=== PATIENT | female | born 1955 | race Caucasian/White ===

== ENCOUNTER 2016-05-10 12:18 | Emergency (ER) | payer OTHER ==
[~2016-05-10 12:18] MED LIST: BACTRIM DS1 TAB PO; BUPROPION HCL100 MG PO; CENTRUM SILVER ULTR1 PO; FLUOXETINE HCL20 MG PO; HYDROXYZINE HCL25 MG PO; IBUPROFEN600 MG PO; PERCOCET1 TA1 PO; VITAMIN D-31000 UNIT PO
--- NOTE | 2016-05-10 13:06 | DIAGNOSTIC IMAGING REPORT ---
PROCEDURE: XR CHEST 2 VIEW INDICATION: FEVER TECHNIQUE: PA and lateral views. COMPARISON: None. FINDINGS: Lungs are clear. Heart and mediastinum are normal. Thorax is normal. IMPRESSION: 1. Negative chest.
--- NOTE | 2016-05-10 13:15 | ED NURSING NOTES ---
Clinical Report - Nurses [facility] [place] [address] 05/10/2016 12:18 Patient: BEATRICE GUTIERREZ TRIAGE Triage time 1237 PM. Chief Complaint: FEVER, COUGH and BODY ACHES. --12:41 Jonathan Greenwood R.N. 12:37 05/10/16. BP: 151/68. HR: 77. RR: 16. O2 saturation: 100% on room air. Temp: 98.5 F (oral). Pain level now: 0. --12:41 Jonathan Greenwood R.N. Alert. No acute distress. --12:41 Jonathan Greenwood R.N. Weight: 59.4 kg stated. Height/Length: 66 inches Per Patient. BMI: 21.1. --12:40 Jonathan Greenwood R.N. Medications PROzac Oral. --12:40 Jonathan Greenwood R.N. Wellbutrin Oral. --12:40 Jonathan Greenwood R.N. Allergies Penicillin. --12:40 Jonathan Greenwood R.N. History Arrived by private vehicle. Historian: patient. Unaccompanied. Onset. (about 3 days ago). She has had contact with a sick individual. (granddaughter with whooping cough). ( Patient presents to the ED with symptoms of fever, chills, cough, and congestion. Patient states that she symptoms started on Monday with runny nose and sneezing. Patient states that her granddaughter was diagnosed with whooping cough and states that she is been "hanging out" with her granddaughter a lot lately.). She has had fatigue, sinus pain and a headache. SOCIAL HX: Light tobacco smoker (cigarette)- less than 1/2 a pack per day. Occasional alcohol use. History of drug use. (no). FALL RISK ASSESSMENT: Fall risk assessment completed. No fall risk identified. NUTRITIONAL RISK ASSESSMENT: The nutritional risk assessment revealed no deficiencies. FUNCTIONAL ASSESSMENT: Functional assessment: no impairments noted. LEARNING NEEDS ASSESSMENT: The learning needs assessment revealed no barriers. SKIN INTEGRITY ASSESSMENT: Skin integrity risk assessment completed. No skin integrity risk identified. --12:41 Jonathan Greenwood R.N. PROBLEMS: Depression. --12:40 Jonathan Greenwood R.N. ADDITIONAL SURGERIES: Elbow sugery. --12:40 Jonathan Greenwood R.N. PHYSICAL ASSESSMENT Ambulatory to room. GENERAL / NEURO / PSYCH: Alert. Oriented X 4. Appears in no acute distress. She has had weakness (headache). HEENT: Pupils equal, round and reactive to light. Mucous membranes are pink. RESPIRATORY: Mild respiratory distress. Cough productive of yellow sputum. CVS: Normal sinus rhythm noted. Capillary refill less than 2 seconds. Pulses within normal limits. GI / : Abdomen soft and nontender and normal bowel sounds. SKIN: Skin intact. Skin is warm and dry. Normal skin turgor. --12:42 Jonathan Greenwood R.N. NURSING PROGRESS NOTES Head of bed elevated. Call light placed in reach. Side rails up x 1. Bed placed in lowest position. Brakes of bed on. --12:42 Jonathan Greenwood R.N. 13:15 05/10/2016 Azithromycin PO Tablets 500 mg given. Allergies verified and confirmed 5 rights. --13:15 Jonathan Greenwood R.N. DISPOSITION / DISCHARGE Condition at departure: improved. The goals identified in the patient's plan of care were met. No learning barriers present. Discharge instructions provided and reviewed with the patient. Reviewed medication(s) side effects, precautions, dosing and course information. Treatments reviewed (handwashing). Patient verbalized understanding. Written instructions provided in [place]. The patient was discharged home and unaccompanied at time of discharge. She left the Emergency Department ambulatory and via private vehicle. Patient driving. FALL RISK ASSESSMENT: Fall risk assessment completed. No fall risk identified. --13:26 Jonathan Greenwood R.N. 13:25 05/10/16. BP: 135/62. HR: 78. RR: 16. O2 saturation: 100%. Temp: 98.2 F (oral). Pain level now: 010. --13:26 Joanthan Greenwood R.N. Departure time: 1326 PM. --13:26 Jonathan Greenwood R.N. Locked/Released at 05/10/2016 13:28 by Jonathan Greenwood R.N.
--- NOTE | 2016-05-10 13:15 | ED CLINICAL REPORT ---
Clinical Report - Physicians/Mid Levels [facility] [address] [place] [address] 05/10/2016 12:18 Patient: BEATRICE GUTIERREZ Time Seen: 12:55 pm. Arrived- By private vehicle. Historian- patient. HISTORY OF PRESENT ILLNESS Chief Complaint: COUGH. This started past 4 days and is still present. It was abrupt in onset and has been constant but is not gone now. The illness is described as moderate. The patient has had a cough, nasal congestion, fever, chills and muscle aches. She has had a nasal discharge. Additional history - The patient has had contact with a sick individual. (granddaughter with diagnosis of pertusis). No recent travel. (reports vaccinations are up to date). Similar symptoms previously: None. Recent medical care: Not recently seen/assessed. REVIEW OF SYSTEMS All systems otherwise negative, except as recorded above. PAST HISTORY See nurses notes. Medications: Wellbutrin Oral. PROzac Oral. Allergies: Penicillin. SOCIAL HISTORY Smoker- current status unknown. No alcohol use or drug use. No recent travel. Is a local resident. ADDITIONAL NOTES The nursing notes have been reviewed. PHYSICAL EXAM Vital Signs: 05/10/2016 12:37 BP: 151/68. HR: 77. RR: 16. O2 saturation: 100%. Temp: 98.5 F. Pain level now: 0/10. Blood pressure normal. Oxygen saturation normal. Appearance: Alert. No acute distress. Eyes: Pupils equal, round and reactive to light. Eyes normal inspection. ENT: Ears normal. Nose normal. Pharynx normal. Uvula midline. Neck: Normal inspection. Neck supple. CVS: Normal heart rate and rhythm. Heart sounds normal. Pulses normal. Respiratory: No respiratory distress. Breath sounds normal. No rales, rhonchi, wheezes or stridor. (occasional cough). Abdomen: Soft and nontender. No organomegaly. Skin: Skin warm and dry. Normal skin color. No rash. Normal skin turgor. LABS, X-RAYS, AND EKG Chest X-ray: (PROCEDURE: XR CHEST 2 VIEW INDICATION: FEVER TECHNIQUE: PA and lateral views. COMPARISON: None. FINDINGS: Lungs are clear. Heart and mediastinum are normal. Thorax is normal. IMPRESSION: 1. Negative chest.). Views: PA and lateral. Technique: good. The X-rays were independently viewed by me, interpreted by the radiologist and discussed with the radiologist. PROGRESS AND PROCEDURES Course of Care: the patient is a pleasant 60-year-old female presenting for evaluation of upper respiratory tract symptoms. At this time differential diagnosis includes pertussis given the recent exposure as well as viral upper respiratory tract infection including Pneumonia. Chest x-ray was ordered from triage. Patient does not have any signs of acute consolidations or pneumothorax on examination. Patient is resting in bed in no acute distress. Patient appears nontoxic. Had discussion in regards to pertussis for the patient. PCR swab obtained for pertussis screening. I discussion with the patient in regards to treatment of pertussis. We'll provide antibiotics for covering of patient as she does have interactions with a 90-year-old Family member. Patient is in no acute respiratory distress. Do not feel further emergency department evaluation or workup is warranted at this time. I discussion with the patient in regards to workup, diagnosis, home care, follow-up, and return precautions. All questions answered. The patient expressed understanding of these instructions and was agreeable to them. Disposition: Discharged. Condition: good. CLINICAL IMPRESSION 05/10/2016 12:37 BP: 151/68. HR: 77. RR: 16. O2 saturation: 100%. Temp: 98.5 F. Pain level now: 0/10. Hypertensive. Oxygen saturation normal. Acute viral syndrome Essential hypertension. Pertussis due to Bordetella pertussis (Acute exposure). No pneumonia. INSTRUCTIONS Off work for 2 days. Warnings: GENERAL WARNINGS: Return or contact your physician immediately if your condition worsens or changes unexpectedly, if not improving as expected, or if other problems arise. Specifically return if pain, vomiting, bleeding, breathing difficulty or fever. Your Current Medications: CONTINUE TAKING THE FOLLOWING MEDICATIONS: PROzac Oral. Wellbutrin Oral. Prescription Medications: Zithromax Z-Prasanth: Take according to package instructions. No refills. Substitution is permissible. Follow-up: Return to the emergency department as needed. Follow up with your doctor in three days. Reason for referral: recheck today's concerns. Summary of care provided to patient via paper. Screening today revealed the patient's blood pressure to be in the hypertensive range. The patient should follow up with a primary care provider for blood pressure management. Understanding of the discharge instructions verbalized by patient. (Electronically signed by Adrian Fletcher Dr. 05/12/2016 2:41)
--- NOTE | 2016-05-10 13:15 | ED ORDER SUMMARY ---
..... Patient: BEATRICE GUTIERREZ OrderSheet [facility] VisitID: [id number] [address] [place] [address] 60y, F Registration Date/Time: 05/10/2016 ORDER SHEET Weight: 59.4 kg (stated) Allergies: Penicillin GENERAL ORDERS: Chest 2V Urgent (12:35 05/10/2016 Sindy Barros) (Ack 12:36 NHouse ER Tech1) (12:56 GMarshall R.N.) Pertussis PCR (Nasopharyngeal) (mucus) Stat (13:05 05/10/2016 Sindy Barros) (Ack 13:12 NHouse ER Tech1) (13:15 HOShaughnessy R.N.) MEDICATION ORDERS: Azithromycin PO 500 mg (NOW) (13:06 05/10/2016 Sindy Barros) (13:15 HOShaughnessy R.N.) IV FLUIDS: ORDER SHEET NOTES: [Electronically signed by Jonathan Greenwood R.N. (13:28 05/10/2016)] [Electronically signed by Adrian Fletcher Dr. (02:41 05/12/2016)] [Electronically locked/signed by Jonathan Greenwood R.N. (13:28 05/10/2016)]
--- NOTE | 2016-05-10 13:15 | ED ORDER SUMMARY ---
..... Patient: BEATRICE GUTIERREZ OrderSheet [facility] VisitID: [id number] [address] [place] [address] 60y, F Registration Date/Time: 05/10/2016 ORDER SHEET Weight: 59.4 kg (stated) Allergies: Penicillin GENERAL ORDERS: Chest 2V Urgent (12:35 05/10/2016 Sindy Barros) (Ack 12:36 NHouse ER Tech1) (12:56 GMarshall R.N.) Pertussis PCR (Nasopharyngeal) (mucus) Stat (13:05 05/10/2016 Sindy Barros) (Ack 13:12 NHouse ER Tech1) (13:15 HOShaughnessy R.N.) MEDICATION ORDERS: Azithromycin PO 500 mg (NOW) (13:06 05/10/2016 Sindy Barros) (13:15 HOShaughnessy R.N.) IV FLUIDS: ORDER SHEET NOTES: [Electronically signed by Jonathan Greenwood R.N. (13:28 05/10/2016)] [Electronically signed by Adrian Fletcher Dr. (02:41 05/12/2016)] [Electronically locked/signed by Jonathan Greenwood R.N. (13:28 05/10/2016)]
--- NOTE | 2016-05-10 13:15 | ED NURSING NOTES ---
Clinical Report - Nurses [facility] [place] [address] [place] [address] 05/10/2016 12:18 Patient: BEATRICE GUTIERREZ TRIAGE Triage time 1237 PM. Chief Complaint: FEVER, COUGH and BODY ACHES. --12:41 Jonathan Greenwood R.N. 12:37 05/10/16. BP: 151/68. HR: 77. RR: 16. O2 saturation: 100% on room air. Temp: 98.5 F (oral). Pain level now: 0. --12:41 Jonathan Greenwood R.N. Alert. No acute distress. --12:41 Jonathan Greenwood R.N. Weight: 59.4 kg stated. Height/Length: 66 inches Per Patient. BMI: 21.1. --12:40 Jonathan Greenwood R.N. Medications PROzac Oral. --12:40 Jonathan Greenwood R.N. Wellbutrin Oral. --12:40 Jonathan Greenwood R.N. Allergies Penicillin. --12:40 Jonathan Greenwood R.N. History Arrived by private vehicle. Historian: patient. Unaccompanied. Onset. (about 3 days ago). She has had contact with a sick individual. (granddaughter with whooping cough). ( Patient presents to the ED with symptoms of fever, chills, cough, and congestion. Patient states that she symptoms started on Monday with runny nose and sneezing. Patient states that her granddaughter was diagnosed with whooping cough and states that she is been "hanging out" with her granddaughter a lot lately.). She has had fatigue, sinus pain and a headache. SOCIAL HX: Light tobacco smoker (cigarette)- less than 1/2 a pack per day. Occasional alcohol use. History of drug use. (no). FALL RISK ASSESSMENT: Fall risk assessment completed. No fall risk identified. NUTRITIONAL RISK ASSESSMENT: The nutritional risk assessment revealed no deficiencies. FUNCTIONAL ASSESSMENT: Functional assessment: no impairments noted. LEARNING NEEDS ASSESSMENT: The learning needs assessment revealed no barriers. SKIN INTEGRITY ASSESSMENT: Skin integrity risk assessment completed. No skin integrity risk identified. --12:41 Jonathan Greenwood R.N. PROBLEMS: Depression. --12:40 Jonathan Greenwood R.N. ADDITIONAL SURGERIES: Elbow sugery. --12:40 Jonathan Greenwood R.N. PHYSICAL ASSESSMENT Ambulatory to room. GENERAL / NEURO / PSYCH: Alert. Oriented X 4. Appears in no acute distress. She has had weakness (headache). HEENT: Pupils equal, round and reactive to light. Mucous membranes are pink. RESPIRATORY: Mild respiratory distress. Cough productive of yellow sputum. CVS: Normal sinus rhythm noted. Capillary refill less than 2 seconds. Pulses within normal limits. GI / : Abdomen soft and nontender and normal bowel sounds. SKIN: Skin intact. Skin is warm and dry. Normal skin turgor. --12:42 Jonathan Greenwood R.N. NURSING PROGRESS NOTES Head of bed elevated. Call light placed in reach. Side rails up x 1. Bed placed in lowest position. Brakes of bed on. --12:42 Jonathan Greenwood R.N. 13:15 05/10/2016 Azithromycin PO Tablets 500 mg given. Allergies verified and confirmed 5 rights. --13:15 Jonathan Greenwood R.N. DISPOSITION / DISCHARGE Condition at departure: improved. The goals identified in the patient's plan of care were met. No learning barriers present. Discharge instructions provided and reviewed with the patient. Reviewed medication(s) side effects, precautions, dosing and course information. Treatments reviewed (handwashing). Patient verbalized understanding. Written instructions provided in [place]. The patient was discharged home and unaccompanied at time of discharge. She left the Emergency Department ambulatory and via private vehicle. Patient driving. FALL RISK ASSESSMENT: Fall risk assessment completed. No fall risk identified. --13:26 Jonathan Greenwood R.N. 13:25 05/10/16. BP: 135/62. HR: 78. RR: 16. O2 saturation: 100%. Temp: 98.2 F (oral). Pain level now: 010. --13:26 Jonathan Greenwood R.N. Departure time: 1326 PM. --13:26 Jonathan Greenwood R.N. Locked/Released at 05/10/2016 13:28 by Jonathan Greenwood R.N.
--- NOTE | 2016-05-12 02:41 | ED MED RECONCILIATION SUMMARY ---
Patient: BEATRICE GUTIERREZ Medication Reconciliation Report [facility] VisitID: [id number] [address] [place] [address] 60y, F Registration Date/Time: 05/10/2016 Weight: 59.4 kg Height/Length: 66 in. BMI: 21.1 ALLERGIES: Penicillin The patient's Home Medications are listed below: CONTINUE TAKING THE FOLLOWING MEDICATIONS: PROzac Oral Wellbutrin Oral The source(s) of the original Home Medication information: Not obtained. The following Medications were given to the patient in the Emergency Department: Azithromycin [PO] PO 500 mg, administered: 05/10/2016 1:15:00 PM The following Medications were prescribed to the patient: Zithromax Z-Prasanth: Take according to package instructions. No refills. Substitution is permissible. -- Adrian Fletcher Dr.
--- NOTE | 2016-05-12 02:41 | ED DISCHARGE INSTRUCTIONS ---
Patient: BEATRICE GUTIERREZ General Instructions [facility] VisitID: [id number] [place] [address] 60y, F Registration Date/Time: 05/10/2016 05/10/2016 12:37 BP: 151/68. HR: 77. RR: 16. O2 saturation: 100%. Temp: 98.5 F. Pain level now: 0/10. Hypertensive. Oxygen saturation normal. Acute viral syndrome Essential hypertension. Pertussis due to Bordetella pertussis (Acute exposure). No pneumonia. INSTRUCTIONS Off work for 2 days. Warnings: GENERAL WARNINGS: Return or contact your physician immediately if your condition worsens or changes unexpectedly, if not improving as expected, or if other problems arise. Specifically return if pain, vomiting, bleeding, breathing difficulty or fever. Your Current Medications: CONTINUE TAKING THE FOLLOWING MEDICATIONS: PROzac Oral. Wellbutrin Oral. Prescription Medications: Zithromax Z-Prasanth: Take according to package instructions. No refills. Substitution is permissible. Follow-up: Return to the emergency department as needed. Follow up with your doctor in three days. Reason for referral: recheck today's concerns. Summary of care provided to patient via paper. Screening today revealed the patient's blood pressure to be in the hypertensive range. The patient should follow up with a primary care provider for blood pressure management. Understanding of the discharge instructions verbalized by patient. ADDITIONAL INFORMATION Viral Syndrome (Adult) A viral illness may cause a number of symptoms. The symptoms depend on the part of the body that the virus affects. If it settles in the nose, throat, and lungs, it may cause cough, sore throat, congestion, and sometimes headache. If it settles in the stomach and intestinal tract, it may cause vomiting and diarrhea. Sometimes it causes vague symptoms like "aching all over," feeling tired, loss of appetite, or fever. A viral illness usually lasts1 to 2 weeks, but sometimes it lasts longer. In some cases, a more serious infection can look like a viral syndrome in the first few days of the illness. You may need anotherexam and additional teststo know the difference.Watch for the warning signs listed below. Home care Follow these guidelines for taking care of yourself at home: If symptoms are severe, rest at home for the first 2 to 3 days. Stay away from cigarette smoke - both your smoke and the smoke from others. You may useacetaminophen or ibuprofen for fever, muscle aching, and headache, unless another medicine was prescribed for this.If you have chronic liver or kidney disease or ever had a stomach ulcer or GI bleeding, talk with your doctor before using these medicinesNo one who is younger than 18 and ill with a fever should take aspirin. It may cause severe liver damage. Your appetite may be poor, so a light diet is fine. Avoid dehydration by drinking 8 to 12 8-ounce glasses of fluids each day. This may include water; orange juice; lemonade; apple, grape, and cranberry juice; clear fruit drinks; electrolyte replacement and sports drinks; and decaffeinated teas and coffee. If you have been diagnosed with a kidney disease, ask your doctor how much and what types of fluids you should drink to prevent dehydration. If you have kidney disease, drinking too much fluid can cause it build up in the your body and be dangerous to your health. Bfnv-dwi-vexumuh remedies won't shorten the length of the illness but may be helpful forcough, sore throat; and nasal and sinus congestion. Don't use decongestants if you have high blood pressure. Follow-up care Follow up with your health care provider if you do not improve over the next week. When to seek medical care Get prompt medical attention if any of these occur: Cough with lots of colored sputum (mucus) or blood in your sputum Chest pain, shortness of breath, wheezing, or difficulty breathing Severe headache; face, neck, or ear pain Severe, constant pain in the lower right side of your belly (abdominal) Continued vomiting (cant keep liquids down) Frequent diarrhea (more than 5 times a day); blood (red or black color) or mucus in diarrhea Feeling weak, dizzy, or like you are going to faint Extreme thirst Fever of 100.4 F (38 C) oral or higher, not better with fever medication Convulsion High Blood Pressure -- To Be Confirmed [No Tx] Your blood pressure was higher today than normal. Sometimes anxiety or pain can cause a temporary rise in blood pressure that later returns to normal. If your blood pressure is high on one measurement, this does not mean that you have hypertension (a chronic illness). However, you must have your blood pressure measured again within the next few days to find out if its still high. A normal blood pressure is 120/80 or less. The first (top) number is the "systolic" pressure. The second (bottom) number is the "diastolic" pressure. Hypertension exists when either the top number is 140 or higher, OR the bottom number is 90 or higher on repeated measurements. Blood pressure in the range of 120-140 (systolic) or 80-89 (diastolic) is considered "pre-hypertension". This means your are at risk for getting hypertension. You should have regular blood pressure checks to be sure your blood pressure is not rising. Home Care: Measure your blood pressure on 3 different days and write down the results. This can be done at your doctor's office or this facility. Some pharmacies and grocery stores offer automated blood pressure machines for your use. Follow Up: If your blood pressure is "high" (over 120/80) on 2 out of 3 days, you will need to follow up with your doctor for further evaluation and treatment. DO NOT PUT THIS OFF! Untreated high blood pressure increases the risk for heart attack, also known as acute myocardial infarction, or AMI, and stroke. It is a treatable condition. Get Prompt Medical Attention if any of the following occur: Chest pain or shortness of breath Severe headache Throbbing or rushing sound in the ears Nosebleed Sudden severe abdominal pain Extreme drowsiness, confusion or fainting Dizziness or vertigo (dizziness with spinning sensation) Weakness of an arm or leg or one side of the face Difficulty with speech or vision Whooping Cough (Pertussis) (6 Yr-Adult) Whooping cough (also called pertussis) is a bacterial infection in the respiratory tract. It is very serious and can lead to severe illness including when it occurs in infants under one year of age or the elderly; however, in children and adults it usually causes only a mild illness. Pertussis is highly contagious and is spread through the air by coughing or sneezing. Bordetella pertussus, the pertussis bacteria, is then breathed in by others who are in close contact with the infected person. The illness starts like an ordinary cold with mild cough, congestion and low grade fever. However, the coughing becomes very severe after the first two weeks of illness and may lead to exhaustion and poor appetite in younger children. There may be very thick mucus in the nose and throat that makes breathing difficult. Coughing spells may be prolonged and followed by a loud "whooping" sound when breathing in. Fatigue (feeling tired),gagging, and vomiting may also occur after a coughing spell. Rarely, in the most severe cases, the air passage can become blocked making it impossible to breathe. Antibiotics are used to treat this illness but after treatment it may take up to three months for the cough to disappear completely. Vaccination of children prevents pertussis, however the vaccine wears off after 5-10 years. This is why teens and adults who were vaccinated as a child can get a mild form of pertussis. These teens and adults can spread the illness to unvaccinated infants and children. Be sure to ask your healthcare provider whether you or your teen needs a booster vaccination. Home Care: Stay home from work or school until you have completed at least five days of antibiotic treatment or until three weeks or 21 days after the onset of cough, if appropriate antibiotic treatment is not taken. If symptoms are severe, rest at home for the first 2-3 days. When resuming activity, do not let yourself become overly tired. Avoid exposure to cigarette smoke (yours or others). Before taking medication for fever, pain, and coughing, please consult with your doctor. Your appetite may be poor so a light diet is fine. Avoid dehydration by drinking 6-8 glasses of fluids (water, sport drinks, juices, tea, soup, etc.). Extra fluids will help loosen secretions in the nose and lungs. Follow Up with your doctor or as advised if you are not improving over the next week. [NOTE: A radiologist will review any X-rays that were taken. We will notify you of any new findings that may affect your care.] Get Prompt Medical Attention if any of the following occur: Shortness of breath, noisy breathing, difficulty or pain with breathing Fast breathing (6-10 yrs: over 30 breaths/min, more than 10 yrs old: over 25 breaths/min) Cough becomes more severe, with gagging, vomiting or turning blue during the cough Cough with lots of colored sputum (mucus) or blood in your sputum Severe headache; face, neck, or ear pain Fever over 100.4F (38.0C) for more than three days Azithromycin Oral tablet What is this medicine? AZITHROMYCIN (az edelmira ramirez) is a macrolide antibiotic. It is used to treat or prevent certain kinds of bacterial infections. It will not work for colds, flu, or other viral infections. How should I use this medicine? Take this medicine by mouth with a full glass of water. Follow the directions on the prescription label. The tablets can be taken with food or on an empty stomach. If the medicine upsets your stomach, take it with food. Take your medicine at regular intervals. Do not take your medicine more often than directed. Take all of your medicine as directed even if you think your are better. Do not skip doses or stop your medicine early. Talk to your library assistant regarding the use of this medicine in children. Special care may be needed. What side effects may I notice from receiving this medicine? Side effects that you should report to your doctor or health respiratory care technician as soon as possible: allergic reactions like skin rash, itching or hives, swelling of the face, lips, or tongue confusion, nightmares or hallucinations dark urine difficulty breathing hearing loss irregular heartbeat or chest pain pain or difficulty passing urine redness, blistering, peeling or loosening of the skin, including inside the mouth white patches or sores in the mouth yellowing of the eyes or skin Side effects that usually do not require medical attention (report to your doctor or health respiratory care technician if they continue or are bothersome): diarrhea dizziness, drowsiness headache stomach upset or vomiting tooth discoloration vaginal irritation What may interact with this medicine? Do not take this medicine with any of the following medications: lincomycin This medicine may also interact with the following medications: amiodarone antacids cyclosporine digoxin magnesium nelfinavir phenytoin warfarin What if I miss a dose? If you miss a dose, take it as soon as you can. If it is almost time for your next dose, take only that dose. Do not take double or extra doses. Where should I keep my medicine? Keep out of the reach of children. Store at room temperature between 15 and 30 degrees C (59 and 86 degrees F). Throw away any unused medicine after the expiration date. What should I tell my health care provider before I take this medicine? They need to know if you have any of these conditions: kidney disease liver disease irregular heartbeat or heart disease an unusual or allergic reaction to azithromycin, erythromycin, other macrolide antibiotics, foods, dyes, or preservatives or trying to get breast-feeding What should I watch for while using this medicine? Tell your doctor or health respiratory care technician if your symptoms do not improve. Do not treat diarrhea with over the counter products. Contact your doctor if you have diarrhea that lasts more than 2 days or if it is severe and watery. This medicine can make you more sensitive to the sun. Keep out of the sun. If you cannot avoid being in the sun, wear protective clothing and use sunscreen. Do not use sun lamps or tanning beds/booths. You have been given the following additional information: Viral Syndrome (Adult) Hypertension, To Be Confirmed Pertussis (6 Yr-Adult) Azithromycin Oral tablet Off work for 2 days. (Electronically signed by Adrian Fletcher Dr. 05/12/2016 2:41)
--- NOTE | 2016-05-12 02:41 | ED MAR SUMMARY ---
..... Medication Administration Record [facility] [address] [place] [address] Patient: BEATRICE GUTIERREZ Visit ID: [id number] 60y, F Weight: 59.4 kg Height/Length: 66 in BMI: 21.1 ALLERGIES: Penicillin Given 13:15 05/10/2016 Jonathan Greenwood R.N. Medication Administered: AZITHROMYCIN [PO], Dose: 500 mg Tablets PO. Medication Ordered: Azithromycin PO 500 mg (NOW).
--- NOTE | 2016-05-12 02:41 | ED MED RECONCILIATION SUMMARY ---
Patient: BEATRICE GUTIERREZ Medication Reconciliation Report [facility] VisitID: [id number] [address] [place] [address] 60y, F Registration Date/Time: 05/10/2016 Weight: 59.4 kg Height/Length: 66 in. BMI: 21.1 ALLERGIES: Penicillin The patient's Home Medications are listed below: CONTINUE TAKING THE FOLLOWING MEDICATIONS: PROzac Oral Wellbutrin Oral The source(s) of the original Home Medication information: Not obtained. The following Medications were given to the patient in the Emergency Department: Azithromycin [PO] PO 500 mg, administered: 05/10/2016 1:15:00 PM The following Medications were prescribed to the patient: Zithromax Z-Prasanth: Take according to package instructions. No refills. Substitution is permissible. -- Adrian Fletcher Dr.
--- NOTE | 2016-05-12 02:41 | ED MAR SUMMARY ---
..... Medication Administration Record [facility] [address] [place] [address] Patient: BEATRICE GUTIERREZ Visit ID: [id number] 60y, F Weight: 59.4 kg Height/Length: 66 in BMI: 21.1 ALLERGIES: Penicillin Given 13:15 05/10/2016 Jonathan Greenwood R.N. Medication Administered: AZITHROMYCIN [PO], Dose: 500 mg Tablets PO. Medication Ordered: Azithromycin PO 500 mg (NOW).
== END 2016-05-10 13:27 | disposition home or self-care (01) ==
LOC: ED SRH 12:18
DX: A37.00 Whooping cough due to Bordetella pertussis without pneumonia (principal); B34.9 Viral infection, unspecified; I10 Essential (primary) hypertension; Z79.899 Other long term (current) drug therapy; Z88.0 Allergy status to penicillin
CPT/HCPCS: 92025

== ENCOUNTER 2016-09-30 11:19 | Observation (INO) | payer OTHER ==
[~2016-09-30] VITALS: Ht 167.6 cm; Wt 57.7 kg
--- NOTE | 2016-09-30 12:26 | DIAGNOSTIC IMAGING REPORT ---
PROCEDURE: XR CHEST 2 VIEW INDICATION: FEVER, PLEURITIC RIGHT CP TECHNIQUE: Two views. COMPARISON: 05/10/2016 FINDINGS: The cardiomediastinal contour is stable, within normal limits. The central vasculature is not congested. There is a lace-like alveolar opacity laterally in the right upper lobe and thickening of the right minor fissure. A tiny right pleural effusion is present. The right lower lung and left lungs are otherwise normally aerated. Osseous structures are intact. IMPRESSION: 1. Findings consistent with infectious/inflammatory pneumonia right lateral upper lobe with very small right pleural effusion.
--- NOTE | 2016-09-30 13:28 | ED ORDER SUMMARY ---
..... Patient: BEATRICE GUTIERREZ OrderSheet [facility] VisitID: [id number] [address] [place] [address] 61y, F Registration Date/Time: 09/30/2016 ORDER SHEET Weight: 56.6 kg (stated) Allergies: Penicillin GENERAL ORDERS: Chest 2V Urgent (11:50 09/30/2016 Sindy Barros) (Ack 11:55 Suzanne) (12:41 Torsten R.N.) CBC w Diff Urgent (11:51 09/30/2016 Sindy Barros) (Ack 11:55 Suzanne) (13:10 LWhalen R.N.) CMP Urgent (11:09/30/2016 Sindy Barros) (Ack 11:55 Suzanne) (13:10 LWhalen R.N.) UA-Culture if indicated Urgent (11:09/30/2016 Sindy Barros) (Ack 11:55 Suzanne) (12:02 LWhalen R.N.) Pulse oximeter (11:09/30/2016 Sindy Barros) (12:40 Torsten R.N.) EKG - ER Stat (:09/30/2016 Sindy Barros) (12:01 OHernandez) Lactate, Serum Urgent (13:32 09/30/2016 Sindy Barros) (Ack 13:34 Suzanne) (15:45 LWhalen R.N.) PCT (Procalcitonin) Urgent (13:32 09/30/2016 Sindy Barros) (Ack 13:34 Suzanne) (15:45 LWhalen R.N.) Blood Culture (Yes) (levaquin) Urgent (13:33 09/30/2016 Sindy Barros) (Ack 13:37 Suzanne) (15:45 LWhalen R.N.) MEDICATION ORDERS: IV FLUIDS: IV NS : initial bolus 1000 mL (1000 mL/hr), then none - for X1 (NOW) (11:09/30/2016 Sindy Barros) (12:42 Torsten R.N.) Toradol IV 30 mg (NOW) (11:51 09/30/2016 Sindy Barros) (12:42 Torsten SaucedaNJames) Azithromycin IV 500 mg/250 mL (NOW) (13:04 09/30/2016 Sindy Barros) (Cancelled: Duplicate Order13:18 Sindy Barros) Ceftriaxone IV 2 gm/50mL (NOW) (13:05 09/30/2016 Sindy Barros) (Cancelled: Duplicate Order13:18 Sindy Barros) Levaquin IV 750 mg/150 mL (NOW) (13:07 09/30/2016 Sindy Barros) (13:31 Liban R.NJames) ORDER SHEET NOTES: [Electronically signed by Ha Chandler R.N. (15:48 09/30/2016)] [Electronically signed by Adrian Fletcher Dr. (11:43 10/01/2016)] [Electronically locked/signed by Ha Chandler R.N. (15:48 09/30/2016)]
--- NOTE | 2016-09-30 13:28 | ED ORDER SUMMARY ---
..... Patient: BEATRICE GUTIERREZ OrderSheet [facility] VisitID: [id number] [address] [place] [address] 61y, F Registration Date/Time: 09/30/2016 ORDER SHEET Weight: 56.6 kg (stated) Allergies: Penicillin GENERAL ORDERS: Chest 2V Urgent (11:50 09/30/2016 Sindy Barros) (Ack 11:55 Suzanne) (12:41 Torsten R.N.) CBC w Diff Urgent (11:51 09/30/2016 Sindy Barros) (Ack 11:55 Suzanne) (13:10 LWhalen R.N.) CMP Urgent (11:09/30/2016 Sindy Barros) (Ack 11:55 Suzanne) (13:10 LWhalen R.N.) UA-Culture if indicated Urgent (11:09/30/2016 Sindy Barros) (Ack 11:55 Suzanne) (12:02 LWhalen R.N.) Pulse oximeter (11:09/30/2016 Sindy Barros) (12:40 Torsten R.N.) EKG - ER Stat (:09/30/2016 Sindy Barros) (12:01 OHernandez) Lactate, Serum Urgent (13:32 09/30/2016 Sindy Barros) (Ack 13:34 Suzanne) (15:45 LWhalen R.N.) PCT (Procalcitonin) Urgent (13:32 09/30/2016 Sindy Barros) (Ack 13:34 Suzanne) (15:45 LWhalen R.N.) Blood Culture (Yes) (levaquin) Urgent (13:33 09/30/2016 Sindy Barros) (Ack 13:37 Suzanne) (15:45 LWhalen R.N.) MEDICATION ORDERS: IV FLUIDS: IV NS : initial bolus 1000 mL (1000 mL/hr), then none - for X1 (NOW) (11:09/30/2016 Sindy Barros) (12:42 Torsten R.N.) Toradol IV 30 mg (NOW) (11:51 09/30/2016 Sindy Barros) (12:42 Torsten SaucedaNJames) Azithromycin IV 500 mg/250 mL (NOW) (13:04 09/30/2016 Sindy Barros) (Cancelled: Duplicate Order13:18 Sindy Barros) Ceftriaxone IV 2 gm/50mL (NOW) (13:05 09/30/2016 Sindy Barros) (Cancelled: Duplicate Order13:18 Sindy Barros) Levaquin IV 750 mg/150 mL (NOW) (13:07 09/30/2016 Sindy Barros) (13:31 Liban R.NJames) ORDER SHEET NOTES: [Electronically signed by Ha Chandler R.N. (15:48 09/30/2016)] [Electronically signed by Adrian Fletcher Dr. (11:43 10/01/2016)] [Electronically locked/signed by Ha Chandler R.N. (15:48 09/30/2016)]
--- NOTE | 2016-09-30 13:28 | ED CLINICAL REPORT ---
Clinical Report - Physicians/Mid Levels [facility] [address] [place] [address] 09/30/2016 11:21 Patient: BEATRICE GUTIERREZ Time Seen: 1145. Arrived- By private vehicle. Historian- patient. HISTORY OF PRESENT ILLNESS Chief Complaint: CHEST PAIN. This started past week and is still present (unchaged). It was abrupt in onset and has been constant but is not gone now. Onset during rest. At its maximum, severity described as moderate. When seen in the E.D., severity described as moderate. Modifying factors- worsened by movement, cough and deep breaths. Relieved by rest. It is described as sharp and it is described as located in the right chest area. No radiation. No nausea, vomiting, difficulty breathing or diaphoresis. (+body aches and muscle cramps). No additional chest pain. (no hx of trauma, leg swelling, recent surgery, hx of DVT/PE, hemoptysis). Similar symptoms previously: None. Recent medical care: Not recently seen/assessed. REVIEW OF SYSTEMS The patient has had fever. She has had a mild nonproductive cough. No skin rash. All systems otherwise negative, except as recorded above. PAST HISTORY See nurses notes. Medications: Gabapentin Oral. PROzac Oral. Wellbutrin Oral. Allergies: Penicillin. SOCIAL HISTORY Never smoker. No alcohol use or drug use. Recent travel. Is a local resident. FAMILY HISTORY Negative. ADDITIONAL NOTES The nursing notes have been reviewed. PHYSICAL EXAM Vital Signs: 09/30/2016 11:43 BP: 124/56. HR: 105. RR: 20. O2 saturation: 91%. Temp: 99.9 F. Blood pressure normal. Oxygen saturation normal. Appearance: Alert. Oriented X3. No acute distress. Eyes: Pupils equal, round and reactive to light. Eyes normal inspection. ENT: Ears normal. Nose normal. Pharynx normal. Neck: Normal inspection. Neck supple. CVS: Normal heart rate and rhythm. Heart sounds normal. Pulses normal. Respiratory: No respiratory distress. Breath sounds normal. Chest nontender. No decreased air movement, rales, rhonchi or wheezes. Abdomen: Soft and nontender. Bowel sounds normal. Skin: Skin warm and dry. Normal skin color. No rash. Normal skin turgor. Extremities: Extremities exhibit normal ROM. No lower extremity edema. Neuro: Oriented X 3. No motor deficit. No sensory deficit. LABS, X-RAYS, AND EKG Chest X-ray: (PROCEDURE: XR CHEST 2 VIEW INDICATION: FEVER, PLEURITIC RIGHT CP TECHNIQUE: Two views. COMPARISON: 05/10/2016 FINDINGS: The cardiomediastinal contour is stable, within normal limits. The central vasculature is not congested. There is a lace-like alveolar opacity laterally in the right upper lobe and thickening of the right minor fissure. A tiny right pleural effusion is present. The right lower lung and left lungs are otherwise normally aerated. Osseous structures are intact. IMPRESSION: 1. Findings consistent with infectious/inflammatory pneumonia right lateral upper lobe with very small right pleural effusion.). Laboratory Tests: CBC w Manual Diff: (ESTELLE: 10/01/2016 04:13) ( MsgRcvd 10/01/2016 09:27) Final results Test Result Flag Units (Reference) WHITE BLOOD COUNT NO REFLEX 6.1 K/uL (4.5-11.5) RED BLOOD COUNT 3.31 L M/uL (4.00-5.20) HEMOGLOBIN 10.2 L gm/dL (12.0-16.0) HEMATOCRIT 30.1 L % (36.0-46.0) MEAN CELL VOLUME 91 fL (80-100) MEAN CORPUSCULAR HGB 31 pg (26-34) MEAN CORPUSCULAR HGB CONC 34 g/dL (31-37) RED CELL DISTRIBUTION WIDTH 14.0 % (11.6-14.8) PLATELET COUNT 305 K/uL (150-400) POLY % 63 % (50-75) BAND % 0 % (0-8) LYMPH 33 % (25-40) MONO 4 % (3-14) EOSINOPHIL % 0 % (0-4) BASOPHIL % 0 % (0-2) METAMYELOCYTE % 0 % (0-1) MYELOCYTE 0 % (0-1) OTHER CELL TYPE 0 POIKILOCYTOSIS 1+ ANISOCYTOSIS 1+ [id number]: (ESTELLE: 10/01/2016 04:13) ( [facility] 10/01/2016 05:50) Final results Test Result Flag Units (Reference) IRON 9 L ug/dL (35-150) TOTAL IRON BINDING CAPACITY 234 L ug/dL (260-445) % SATURATION 4 L % (15-50) [id number]: (ESTELLE: 10/01/2016 04:13) ( [facility] 10/01/2016 06:37) Final results Test Result Flag Units (Reference) VITAMIN B12 875 pg/mL (211-946) FOLATE 57.1 ng/mL (>3.0) [id number]: (ESTELLE: 10/01/2016 04:13) ( [facility] 10/01/2016 07:32) Final results Test Result Flag Units (Reference) PROCALCITONIN <0.5 ng/mL (0-0.5) PCT Concentration: Interpretation : Risk/option for action PCT <=0.5 ng/mL : Systemic : Low risk forinfection(sepsis): progression to severeis not likely. : systemic infection.Local bacterial : CAUTION-PCT levelsinfection is : below 0.5 ng/mL do notpossible. : exclude an infection,because localizedinfections (withoutsystemic signs) may beassociated with suchlow levels. If PCT ismeasured very earlyafter a bacterialchallenge (usually <6hours), these valuesmay still be low. Inthis case PCT shouldbe re-assessed 6-24hours later. PCT >0.5 and : Systemic infection: Moderate risk for<= 2 ng/mL : (sepsis) is : progression to severepossible, but : systemic infection.other conditions : The patient should beare known to : closely monitoredelevate PCT. : both clinically andby re-assessing PCTwithin 6-24 hours. PCT > 2 ng/mL : Systemic infection: High risk for(sepsis) is likely: progression to severeunless other : systemic infection.causes are known. : PCT >= 10 ng/mL : Important systemic: High likelihood ofinflammatory : severe sepsis orresponse, almost : septic shock.exclusively due to:severe bacterial :sepsis or septic :shock. : UA-Culture if indicated: (ESTELLE: 09/30/2016 11:50) ( MsgRcvd 09/30/2016 12:23) Final results Test Result Flag Units (Reference) URINE COLOR YELLOW URINE APPEARANCE CLEAR URINE GLUCOSE NEGATIVE (NEGATIVE) URINE BILIRUBIN NEGATIVE (NEGATIVE) URINE KETONE NEGATIVE (NEGATIVE) URINE SPECIFIC GRAVITY 1.010 (1.010-1.030) URINE PH 6.0 (5.0-8.0) URINE PROTEIN TRACE (NEGATIVE) URINE UROBILINOGEN 0.2 EU/dL (0.2-1.0) URINE NITRITE NEGATIVE (NEGATIVE) URINE BLOOD NEGATIVE (NEGATIVE) URINE LEUK ESTERASE NEGATIVE (NEGATIVE) URINE RBC NONE SEEN rbc/hpf (0-1) URINE WBC 1-3 wbc/hpf (0-1) URINE EPITHELIAL CELLS 0-1 EPI/hpf (0-5) URINE BACTERIA MODERATE (2+ TO 3+) (NONE SEEN) URINE COMMENT CULTURE INDICATED 1+ MUCUSURINE CULTURES ARE SET-UP BASED ON THE FOLLOWING CRITERIA:POSITIVE NITRITEPOSITIVE LEUKOCYTE ESTERASEGREATER THAN 10 WHITE BLOOD CELLSMODERATE (2+) OR GREATER BACTERIA CBC w Diff: (ESTELLE: 09/30/2016 12:58) ( [facility] 09/30/2016 13:15) Final results Test Result Flag Units (Reference) WHITE BLOOD COUNT 6.9 K/uL (4.5-11.5) RED BLOOD COUNT 3.52 L M/uL (4.00-5.20) HEMOGLOBIN 10.8 L gm/dL (12.0-16.0) HEMATOCRIT 32.2 L % (36.0-46.0) MEAN CELL VOLUME 92 fL (80-100) MEAN CORPUSCULAR HGB 31 pg (26-34) MEAN CORPUSCULAR HGB CONC 33 g/dL (31-37) RED CELL DISTRIBUTION WIDTH 14.0 % (11.6-14.8) PLATELET COUNT 306 K/uL (150-400) NEUTROPHIL % 78.1 H % (50-75) LYMPH % 9.2 L % (25-40) MONO % 11.6 % (3-14) EOSINOPHIL % 0.7 % (0-4) BASOPHIL % 0.4 % (0-2) Lactate, Serum: (ESTELLE: 09/30/2016 13:46) ( [facility] 09/30/2016 14:20) Final results Test Result Flag Units (Reference) LACTIC ACID 0.7 mmol/L (0.4-2.0) [id number]: (ESTELLE: 09/30/2016 12:58) ( [facility] 09/30/2016 14:06) Final results Test Result Flag Units (Reference) PROCALCITONIN <0.5 ng/mL (0-0.5) PCT Concentration: Interpretation : Risk/option for action PCT <=0.5 ng/mL : Systemic : Low risk forinfection(sepsis): progression to severeis not likely. : systemic infection.Local bacterial : CAUTION-PCT levelsinfection is : below 0.5 ng/mL do notpossible. : exclude an infection,because localizedinfections (withoutsystemic signs) may beassociated with suchlow levels. If PCT ismeasured very earlyafter a bacterialchallenge (usually <6hours), these valuesmay still be low. Inthis case PCT shouldbe re-assessed 6-24hours later. PCT >0.5 and : Systemic infection: Moderate risk for<= 2 ng/mL : (sepsis) is : progression to severepossible, but : systemic infection.other conditions : The patient should beare known to : closely monitoredelevate PCT. : both clinically andby re-assessing PCTwithin 6-24 hours. PCT > 2 ng/mL : Systemic infection: High risk for(sepsis) is likely: progression to severeunless other : systemic infection.causes are known. : PCT >= 10 ng/mL : Important systemic: High likelihood ofinflammatory : severe sepsis orresponse, almost : septic shock.exclusively due to:severe bacterial :sepsis or septic :shock. : CMP: (ESTELLE: 09/30/2016 12:58) ( MsgRcvd 09/30/2016 13:21) Final results Test Result Flag Units (Reference) GLUCOSE 106 mg/dL (70-110) BUN 17 mg/dL (7-18) CREATININE 0.9 mg/dL (0.6-1.3) Estimated GFR >60 mL/min Estimated GFR- >60 mL/min Note: Persistent reduction over 3 months in eGFR<60 mL/min/1.73 m2 defines CKD. Patients with eGFR values>=60 mL/min/1.73 m2 may also have CKD if evidence ofpersistent proteinuria. Additional information may be foundat www.kidney.org. SODIUM 134 L mmol/L (136-145) POTASSIUM 4.0 mmol/L (3.5-5.1) CHLORIDE 97 L mmol/L (98-107) CARBON DIOXIDE 22 mmol/L (21-32) CALCIUM 8.8 mg/dL (8.5-10.1) TOTAL PROTEIN 7.2 g/dL (6.4-8.2) ALBUMIN 3.1 L g/dL (3.3-5.0) BILIRUBIN, TOTAL 0.2 mg/dL (0.0-1.0) ALKALINE PHOSPHATASE 76 U/L (46-116) AST (SGOT) 36 U/L (15-37) ALT (SGPT) 37 U/L (12-78) Culture, Urine: (ESTELLE: 09/30/2016 11:50) ( MsgRcvd 10/01/2016 10:58) IP Test Result Flag Units (Reference) CULTURE, URINE DATE: 10/01/16 NO GROWTH AT:: NO GROWTH AT 1 DAY PRELIM REPORT: PRELIMINARY REPORT #1 . PROGRESS AND PROCEDURES Course of Care: the patient is a pleasant 61-year-old female presenting for evaluation of right-sided chest pain. At this time differential diagnosis includes pneumonia versus bronchitis versus rib strain/pain. If the patient's workup it is not remarkable for any findings that would explain her symptoms today, would consider other workup for acute myocardial infarction and pulmonary embolism. At this time patient is agreeable to the treatment plan. Patient appears nontoxic and in no acute distress. the patient's workup was remarkable for right upper lobe pneumonia. Because the patient's pneumonia, patient be treated with antibiotics. Because the patient's workup here in the emergency department, do not feel patient requires evaluation for myocardial infarction given the patient's diagnosis and findings. Initially, when patient was evaluated, did not feel patient needs to be admitted to the hospital however after reviewing the patient's laboratory studies, patient was noted to be borderline for her admission criteria. patient was given first dose of antibiotics here in the emergency department. in discussion with the patient's evaluation and diagnosis, patient was concerned about her findings as well Because of this, I discussion patient in regards to admission to the hospital. Patient felt more comfortable with admission to the hospital given her illness. Based on the patient's CURB 65 score. Patient was low risk and therefore would be a good outpatient candidate however because of her worsening fever here in the emergency department, would feel the patient would be better served with admission to the hospital under observation, specifically if the symptoms have been ongoing for the past 7 days. unfortunately, antibiotics early been started. A lactate and blood cultures were drawn after the antibiotics were started. Because of the patient's penicillin allergy, Levaquin was decided upon. I discussed the case with the hospitalist who will accept the patient. recommended add-on of PCT. No further recommendations made. Patient was taken up to the floor. Prior to patient's departure from the emergency department she was noted to be resting in bed and in no acute distress. Subjectively, patient states that her fever had improved. (Electronically signed by Adrian Fletcher Dr. 10/01/2016 11:43)
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
--- NOTE | 2016-09-30 13:28 | ED CLINICAL REPORT ---
Clinical Report - Physicians/Mid Levels Located Within [facility] [address] [place] [address] 09/30/2016 11:21 Patient: BEATRICE GUTIERREZ Time Seen: 1145. Arrived- By private vehicle. Historian- patient. HISTORY OF PRESENT ILLNESS Chief Complaint: CHEST PAIN. This started past week and is still present (unchaged). It was abrupt in onset and has been constant but is not gone now. Onset during rest. At its maximum, severity described as moderate. When seen in the E.D., severity described as moderate. Modifying factors- worsened by movement, cough and deep breaths. Relieved by rest. It is described as sharp and it is described as located in the right chest area. No radiation. No nausea, vomiting, difficulty breathing or diaphoresis. (+body aches and muscle cramps). No additional chest pain. (no hx of trauma, leg swelling, recent surgery, hx of DVT/PE, hemoptysis). Similar symptoms previously: None. Recent medical care: Not recently seen/assessed. REVIEW OF SYSTEMS The patient has had fever. She has had a mild nonproductive cough. No skin rash. All systems otherwise negative, except as recorded above. PAST HISTORY See nurses notes. Medications: Gabapentin Oral. PROzac Oral. Wellbutrin Oral. Allergies: Penicillin. SOCIAL HISTORY Never smoker. No alcohol use or drug use. Recent travel. Is a local resident. FAMILY HISTORY Negative. ADDITIONAL NOTES The nursing notes have been reviewed. PHYSICAL EXAM Vital Signs: 09/30/2016 11:43 BP: 124/56. HR: 105. RR: 20. O2 saturation: 91%. Temp: 99.9 F. Blood pressure normal. Oxygen saturation normal. Appearance: Alert. Oriented X3. No acute distress. Eyes: Pupils equal, round and reactive to light. Eyes normal inspection. ENT: Ears normal. Nose normal. Pharynx normal. Neck: Normal inspection. Neck supple. CVS: Normal heart rate and rhythm. Heart sounds normal. Pulses normal. Respiratory: No respiratory distress. Breath sounds normal. Chest nontender. No decreased air movement, rales, rhonchi or wheezes. Abdomen: Soft and nontender. Bowel sounds normal. Skin: Skin warm and dry. Normal skin color. No rash. Normal skin turgor. Extremities: Extremities exhibit normal ROM. No lower extremity edema. Neuro: Oriented X 3. No motor deficit. No sensory deficit. LABS, X-RAYS, AND EKG Chest X-ray: (PROCEDURE: XR CHEST 2 VIEW INDICATION: FEVER, PLEURITIC RIGHT CP TECHNIQUE: Two views. COMPARISON: 05/10/2016 FINDINGS: The cardiomediastinal contour is stable, within normal limits. The central vasculature is not congested. There is a lace-like alveolar opacity laterally in the right upper lobe and thickening of the right minor fissure. A tiny right pleural effusion is present. The right lower lung and left lungs are otherwise normally aerated. Osseous structures are intact. IMPRESSION: 1. Findings consistent with infectious/inflammatory pneumonia right lateral upper lobe with very small right pleural effusion.). Laboratory Tests: CBC w Manual Diff: (ESTELLE: 10/01/2016 04:13) ( MsgRcvd 10/01/2016 09:27) Final results Test Result Flag Units (Reference) WHITE BLOOD COUNT NO REFLEX 6.1 K/uL (4.5-11.5) RED BLOOD COUNT 3.31 L M/uL (4.00-5.20) HEMOGLOBIN 10.2 L gm/dL (12.0-16.0) HEMATOCRIT 30.1 L % (36.0-46.0) MEAN CELL VOLUME 91 fL (80-100) MEAN CORPUSCULAR HGB 31 pg (26-34) MEAN CORPUSCULAR HGB CONC 34 g/dL (31-37) RED CELL DISTRIBUTION WIDTH 14.0 % (11.6-14.8) PLATELET COUNT 305 K/uL (150-400) POLY % 63 % (50-75) BAND % 0 % (0-8) LYMPH 33 % (25-40) MONO 4 % (3-14) EOSINOPHIL % 0 % (0-4) BASOPHIL % 0 % (0-2) METAMYELOCYTE % 0 % (0-1) MYELOCYTE 0 % (0-1) OTHER CELL TYPE 0 POIKILOCYTOSIS 1+ ANISOCYTOSIS 1+ [id number]: (ESTELLE: 10/01/2016 04:13) ( [facility] 10/01/2016 05:50) Final results Test Result Flag Units (Reference) IRON 9 L ug/dL (35-150) TOTAL IRON BINDING CAPACITY 234 L ug/dL (260-445) % SATURATION 4 L % (15-50) [id number]: (ESTELLE: 10/01/2016 04:13) ( [facility] 10/01/2016 06:37) Final results Test Result Flag Units (Reference) VITAMIN B12 875 pg/mL (211-946) FOLATE 57.1 ng/mL (>3.0) [id number]: (ESTELLE: 10/01/2016 04:13) ( [facility] 10/01/2016 07:32) Final results Test Result Flag Units (Reference) PROCALCITONIN <0.5 ng/mL (0-0.5) PCT Concentration: Interpretation : Risk/option for action PCT <=0.5 ng/mL : Systemic : Low risk forinfection(sepsis): progression to severeis not likely. : systemic infection.Local bacterial : CAUTION-PCT levelsinfection is : below 0.5 ng/mL do notpossible. : exclude an infection,because localizedinfections (withoutsystemic signs) may beassociated with suchlow levels. If PCT ismeasured very earlyafter a bacterialchallenge (usually <6hours), these valuesmay still be low. Inthis case PCT shouldbe re-assessed 6-24hours later. PCT >0.5 and : Systemic infection: Moderate risk for<= 2 ng/mL : (sepsis) is : progression to severepossible, but : systemic infection.other conditions : The patient should beare known to : closely monitoredelevate PCT. : both clinically andby re-assessing PCTwithin 6-24 hours. PCT > 2 ng/mL : Systemic infection: High risk for(sepsis) is likely: progression to severeunless other : systemic infection.causes are known. : PCT >= 10 ng/mL : Important systemic: High likelihood ofinflammatory : severe sepsis orresponse, almost : septic shock.exclusively due to:severe bacterial :sepsis or septic :shock. : UA-Culture if indicated: (ESTELLE: 09/30/2016 11:50) ( MsgRcvd 09/30/2016 12:23) Final results Test Result Flag Units (Reference) URINE COLOR YELLOW URINE APPEARANCE CLEAR URINE GLUCOSE NEGATIVE (NEGATIVE) URINE BILIRUBIN NEGATIVE (NEGATIVE) URINE KETONE NEGATIVE (NEGATIVE) URINE SPECIFIC GRAVITY 1.010 (1.010-1.030) URINE PH 6.0 (5.0-8.0) URINE PROTEIN TRACE (NEGATIVE) URINE UROBILINOGEN 0.2 EU/dL (0.2-1.0) URINE NITRITE NEGATIVE (NEGATIVE) URINE BLOOD NEGATIVE (NEGATIVE) URINE LEUK ESTERASE NEGATIVE (NEGATIVE) URINE RBC NONE SEEN rbc/hpf (0-1) URINE WBC 1-3 wbc/hpf (0-1) URINE EPITHELIAL CELLS 0-1 EPI/hpf (0-5) URINE BACTERIA MODERATE (2+ TO 3+) (NONE SEEN) URINE COMMENT CULTURE INDICATED 1+ MUCUSURINE CULTURES ARE SET-UP BASED ON THE FOLLOWING CRITERIA:POSITIVE NITRITEPOSITIVE LEUKOCYTE ESTERASEGREATER THAN 10 WHITE BLOOD CELLSMODERATE (2+) OR GREATER BACTERIA CBC w Diff: (ESTELLE: 09/30/2016 12:58) ( [facility] 09/30/2016 13:15) Final results Test Result Flag Units (Reference) WHITE BLOOD COUNT 6.9 K/uL (4.5-11.5) RED BLOOD COUNT 3.52 L M/uL (4.00-5.20) HEMOGLOBIN 10.8 L gm/dL (12.0-16.0) HEMATOCRIT 32.2 L % (36.0-46.0) MEAN CELL VOLUME 92 fL (80-100) MEAN CORPUSCULAR HGB 31 pg (26-34) MEAN CORPUSCULAR HGB CONC 33 g/dL (31-37) RED CELL DISTRIBUTION WIDTH 14.0 % (11.6-14.8) PLATELET COUNT 306 K/uL (150-400) NEUTROPHIL % 78.1 H % (50-75) LYMPH % 9.2 L % (25-40) MONO % 11.6 % (3-14) EOSINOPHIL % 0.7 % (0-4) BASOPHIL % 0.4 % (0-2) Lactate, Serum: (ESTELLE: 09/30/2016 13:46) ( [facility] 09/30/2016 14:20) Final results Test Result Flag Units (Reference) LACTIC ACID 0.7 mmol/L (0.4-2.0) [id number]: (ESTELLE: 09/30/2016 12:58) ( [facility] 09/30/2016 14:06) Final results Test Result Flag Units (Reference) PROCALCITONIN <0.5 ng/mL (0-0.5) PCT Concentration: Interpretation : Risk/option for action PCT <=0.5 ng/mL : Systemic : Low risk forinfection(sepsis): progression to severeis not likely. : systemic infection.Local bacterial : CAUTION-PCT levelsinfection is : below 0.5 ng/mL do notpossible. : exclude an infection,because localizedinfections (withoutsystemic signs) may beassociated with suchlow levels. If PCT ismeasured very earlyafter a bacterialchallenge (usually <6hours), these valuesmay still be low. Inthis case PCT shouldbe re-assessed 6-24hours later. PCT >0.5 and : Systemic infection: Moderate risk for<= 2 ng/mL : (sepsis) is : progression to severepossible, but : systemic infection.other conditions : The patient should beare known to : closely monitoredelevate PCT. : both clinically andby re-assessing PCTwithin 6-24 hours. PCT > 2 ng/mL : Systemic infection: High risk for(sepsis) is likely: progression to severeunless other : systemic infection.causes are known. : PCT >= 10 ng/mL : Important systemic: High likelihood ofinflammatory : severe sepsis orresponse, almost : septic shock.exclusively due to:severe bacterial :sepsis or septic :shock. : CMP: (ESTELLE: 09/30/2016 12:58) ( MsgRcvd 09/30/2016 13:21) Final results Test Result Flag Units (Reference) GLUCOSE 106 mg/dL (70-110) BUN 17 mg/dL (7-18) CREATININE 0.9 mg/dL (0.6-1.3) Estimated GFR >60 mL/min Estimated GFR- >60 mL/min Note: Persistent reduction over 3 months in eGFR<60 mL/min/1.73 m2 defines CKD. Patients with eGFR values>=60 mL/min/1.73 m2 may also have CKD if evidence ofpersistent proteinuria. Additional information may be foundat [email or web address].org. SODIUM 134 L mmol/L (136-145) POTASSIUM 4.0 mmol/L (3.5-5.1) CHLORIDE 97 L mmol/L (98-107) CARBON DIOXIDE 22 mmol/L (21-32) CALCIUM 8.8 mg/dL (8.5-10.1) TOTAL PROTEIN 7.2 g/dL (6.4-8.2) ALBUMIN 3.1 L g/dL (3.3-5.0) BILIRUBIN, TOTAL 0.2 mg/dL (0.0-1.0) ALKALINE PHOSPHATASE 76 U/L (46-116) AST (SGOT) 36 U/L (15-37) ALT (SGPT) 37 U/L (12-78) Culture, Urine: (ESTELLE: 09/30/2016 11:50) ( MsgRcvd 10/01/2016 10:58) IP Test Result Flag Units (Reference) CULTURE, URINE DATE: 10/01/16 NO GROWTH AT:: NO GROWTH AT 1 DAY PRELIM REPORT: PRELIMINARY REPORT #1 . PROGRESS AND PROCEDURES Course of Care: the patient is a pleasant 61-year-old female presenting for evaluation of right-sided chest pain. At this time differential diagnosis includes pneumonia versus bronchitis versus rib strain/pain. If the patient's workup it is not remarkable for any findings that would explain her symptoms today, would consider other workup for acute myocardial infarction and pulmonary embolism. At this time patient is agreeable to the treatment plan. Patient appears nontoxic and in no acute distress. the patient's workup was remarkable for right upper lobe pneumonia. Because the patient's pneumonia, patient be treated with antibiotics. Because the patient's workup here in the emergency department, do not feel patient requires evaluation for myocardial infarction given the patient's diagnosis and findings. Initially, when patient was evaluated, did not feel patient needs to be admitted to the hospital however after reviewing the patient's laboratory studies, patient was noted to be borderline for her admission criteria. patient was given first dose of antibiotics here in the emergency department. in discussion with the patient's evaluation and diagnosis, patient was concerned about her findings as well Because of this, I discussion patient in regards to admission to the hospital. Patient felt more comfortable with admission to the hospital given her illness. Based on the patient's CURB 65 score. Patient was low risk and therefore would be a good outpatient candidate however because of her worsening fever here in the emergency department, would feel the patient would be better served with admission to the hospital under observation, specifically if the symptoms have been ongoing for the past 7 days. unfortunately, antibiotics early been started. A lactate and blood cultures were drawn after the antibiotics were started. Because of the patient's penicillin allergy, Levaquin was decided upon. I discussed the case with the hospitalist who will accept the patient. recommended add-on of PCT. No further recommendations made. Patient was taken up to the floor. Prior to patient's departure from the emergency department she was noted to be resting in bed and in no acute distress. Subjectively, patient states that her fever had improved. (Electronically signed by Adrian Fletcher Dr. 10/01/2016 11:43)
--- NOTE | 2016-09-30 14:32 | Progress Note ---
Subjective General Admission History and Physical Examination Patient Name: Molly Wilson Admission Date: September 30, 2016 Primary Care Provider: Feliz Patrick MD Attending Physician: Wali Kaminski MD Admitting Physician: Wali Kaminski M.D. Code Status: FULL CODE Room: 304 Status: Observation, acute care SUBJECTIVE Historian: Patient Reliability: Good Chief Complaint: Cough, fever, chills History of Present Illness: The patient is a 61-year-old white female with a significant past mental history of depression, peripheral neuropathy, who presented to [facility] emergency department on the day of admission secondary to complaints of cough fever and chills of one week duration. [facility] ER evaluation was consistent with right-sided pneumonia. Secondary to the above, the patient was admitted by Wali Kaminski M.D. for further evaluation and treatment. The history of present illness began approximately one week prior to admission. The patient developed diffuse myalgias, fever, chills, and cough which was minimally productive. Her symptoms worsened over the past 2 days. She was seen by her PCP who felt her symptoms were most likely viral in etiology. She had increasing symptomatology with increasing mild cough fever and chills. This prompted [facility] ER evaluation. [facility] ER evaluation included chest x-ray showing right-sided pneumonia. WBC was within normal limits. Procalcitonin pending at the time of admission. Secondary to the above, the patient was admitted with a diagnosis of right-sided pneumonia for further evaluation and treatment. PAST MEDICAL HISTORY Illnesses: 1. Depression 2. Peripheral neuropathy 3. Nicotine dependence-smoking Allergies: 1. Penicillin Medications: 1. Neurontin 300 mg by mouth 3 times a day 2. Prozac 20 mg by mouth daily 3. Wellbutrin 1 by mouth twice a day (dosage unknown) Surgery: 1. Elbow surgery-left side 2. Bunionectomy-left side 3. Appendectomy Injuries: 1. No significant Hospitalizations: 1. For above surgery and medical problems. FAMILY HISTORY Parents: 1. Father, [place]i, , 72, coronary disease, prostate disease, 2. Mother, living, 90, healthy Siblings: 1. Male, living, 70, BPH 2. Female, living, 60, hypertension, degenerative joint disease 3. Female, , 60, melanoma Children: 1. Male, living, Сергей, 45, spinal cord injury 2. Male, Cong, living, 43, hypertension Other significant family history: None SOCIAL HISTORY 1. Marital Status: 2. Buddhist: None 3. Education: High school 4. Employment History: [employer]-employed 5. Occupational health exposures: Dust, heavy lifting HABITS 1. Tobacco: One half pack per day 2. Drugs: 2 ounces per day 3. Alcohol: None 4. Caffeine: Coffee-2 cups per day HEALTH SUPERVISION Item/Test 1. Stool Hemoccult-2016 IMMUNIZATIONS: 1. Pneumococcal: 2017 2. Influenza: 2017 3. Tetanus: 2017 ADVANCED DIRECTIVES: 1. Living well: No 2. POLST: No 3. Code Status: FULL CODE 4. Durable Power Drafter Structural Health care: No 5. Donor card: Yes REVIEW OF SYSTEMS Remarkable for those things stated in the history of present illness and past medical history. Seventeen point review of system completed with the following notable findings: General: Weight loss, fatigue, pain, fever, weakness Respiratory: Pneumonia, cough Musculoskeletal: Joint pain, joint swelling Psychological: Depression, difficulty sleeping, anxiety Physical Exam General Appearance Alert, Oriented X3, Cooperative, No acute distress HEENT Atraumatic, PERRLA, EOMI, Moist mucous membranes Lungs Normal air movement, scattered rhonchi, no wheezes, (R) sided rales Neck Supple, No JVD, No masses, No thyromegaly, No lymphadenopathy Cardiovascular Regular rate and rhythm, Normal S1 and S2, No murmurs, gallops, rubs Abdomen Normal bowel sounds, Soft, No tenderness, No guarding Extremities No cyanosis, No clubbing, No edema, Normal pulses Neurological Cranial nerves intact, Strength 5/5 x4 ext's, No lateralizing signs Psych/Mental Status Mental status normal, Mood normal LAB Results Laboratory Tests 09/30 09/30 09/30 09/30 1346 1258 1258 1150 Chemistry Plasma Sodium (136 - 145 mmol/L) 134 Plasma Potassium (3.5 - 5.1 mmol/L) 4.0 Plasma Chloride (98 - 107 mmol/L) 97 CO2 (Enzymatic) (21 - 32 mmol/L) 22 BUN (7 - 18 mg/dL) 17 Creatinine (0.6 - 1.3 mg/dL) 0.9 Est GFR ( Amer) (mL/min) >60 Est GFR (Non-Af Amer) (mL/min) >60 Glucose (70 - 110 mg/dL) 106 Lactic Acid (0.4 - 2.0 mmol/L) 0.7 Plasma Calcium (8.5 - 10.1 mg/dL) 8.8 Total Bilirubin (0.0 - 1.0 mg/dL) 0.2 AST (15 - 37 U/L) 36 ALT (12 - 78 U/L) 37 Alkaline Phosphatase (46 - 116 U/L) 76 Total Protein (6.4 - 8.2 g/dL) 7.2 Albumin (3.3 - 5.0 g/dL) 3.1 Procalcitonin (0 - 0.5 ng/mL) <0.5 Hematology WBC (4.5 - 11.5 K/uL) 6.9 RBC (4.00 - 5.20 M/uL) 3.52 Hgb (12.0 - 16.0 gm/dL) 10.8 Hct (36.0 - 46.0 %) 32.2 MCV (80 - 100 fL) 92 MCH (26 - 34 pg) 31 RDW (11.6 - 14.8 %) 14.0 Neut % (Auto) (50 - 75 %) 78.1 Lymph % (Auto) (25 - 40 %) 9.2 Larue % (Auto) (3 - 14 %) 11.6 Eos % (Auto) (0 - 4 %) 0.7 Baso % (Auto) (0 - 2 %) 0.4 Plt Count, EDTA (150 - 400 K/uL) 306 PUBS MCHC (31 - 37 g/dL) 33 Urines Urine Color YELLOW Urine Appearance CLEAR Urine pH (5.0 - 8.0) 6.0 Ur Specific [place] (1.010 - 1.030) 1.010 Urine Protein (NEGATIVE) TRACE Urine Ketones (NEGATIVE) NEGATIVE Urine Blood (NEGATIVE) NEGATIVE Urine Nitrite (NEGATIVE) NEGATIVE Urine Bilirubin (NEGATIVE) NEGATIVE Urine Urobilinogen (0.2 - 1.0 EU/dL) 0.2 Ur Leukocyte Esterase (NEGATIVE) NEGATIVE Urine RBC (0 - 1 rbc/hpf) NONE SEEN Urine WBC (0 - 1 wbc/hpf) 1-3 Ur Epithelial Cells (0 - 5 EPI/hpf) 0-1 Urine Bacteria (NONE SEEN) MODERATE (2+ TO 3+) Urine Glucose (NEGATIVE) NEGATIVE Urine Comment CULTURE INDICATED Microbiology Date/Time Procedure - Status Source Growth 09/30 1346 Blood Culture - RECD BLOOD 09/30 1150 Urine Culture - RECD URINE CC 09/30 UNK Respiratory Culture - ORD SPUTUM 09/30 UNK Culture and Gram Stain - ORD SPUTUM Assessment and Plan Problem List 1. Right upper lobe pneumonia Plan -Patient presents with findings of right-sided pneumonia -Fever and chills with minimal cough. -Normal WBC -Procalcitonin within normal limits -May represent atypical/viral pneumonia -Recheck CBC, Procalcitonin a.m. if unremarkable consider discontinuation of antimicrobials/switching to oral medications. 2. Depression Status Chronic Onset Date Unknown Plan -Stable -Continue outpatient medical regimen 3. Peripheral neuropathy Plan -Stable -Continue outpatient medical regimen 4. UTI (urinary tract infection) Status Acute Onset Date Unknown Plan -UA suggestive of UYTI -Await urine C&S -Levaquin 750mg IV daily 5. Anemia Status Acute Onset Date Unknown Plan -patient with mild anemia -check iron studies, folate, B12 6. Nicotine dependence Status Chronic Onset Date Unknown Plan -Patient with history of nicotine dependence has been smoking -Smoking cessation education -Nicotine patch when necessary -Encourage smoking abstinence program post discharge 7. Pleurisy with effusion Status Acute Onset Date Unknown Plan -Patient presents with findings of pleurisy/pleuritic chest pain -Toradol/Dilaudid when necessary pain -Monitor Current status: Fair, unstable Anticipated discharge date: Anticipated discharge 1-2 days Anticipated discharge placement: Home Patient care time: Time spent in chart review, patient interview, physical exam, CPOE, and care documentation: 70 minutes Visit to patient today: 2 Complexity of care: High DVT prophylaxis: Lovenox 40 mg subcutaneous daily E&M Codes Admission: Obsv-Comp/High/[id number]
[2016-09-30 15:33] VITALS: BP 157/55
[2016-09-30] MEDS ORDERED: ACETAMINOPHEN325 MG PO (16:21)
--- NOTE | 2016-09-30 17:26 | NUR ---
RECEIVED PATIENT TO FLOOR FROM ED AT 1535. PATIENT MADE COMFORTABLE AND VITAL SIGNS TAKEN. PATIENT REPORTED TAKING 1,000 MG OF HER OWN TYLENOL, PATIENT'S MED RETRIEVED AND SENT TO PHARMACY. WILL CONTINUE TO MONITOR PATIENT.
--- NOTE | 2016-09-30 18:27 | NUR ---
Patient remains alert and oriented. Patient is ambulatory and is steady on her feet, independent to the bathroom.
[2016-09-30 18:42] VITALS: BP 125/44
[2016-09-30 22:10] VITALS: BP 138/47
[2016-10-01 02:17] VITALS: BP 146/56
--- NOTE | 2016-10-01 02:50 | NUR ---
PATIENT BEEN HAVING LOW GRADE FEVER AND GENERAL MALAISE, WENT TO BATHROOM AND BECAME NAUSEATED, HAD APPROXIMATELY 5ML OF CLEAR EMESIS/SALIVA INTO EMESIS BAG, GAVE ZOFRAN WITH GOOD RELIEF, GAVE TORADOL FOR GENERAL ACHES AND PAINS, PATIENT ABLE TO SLEEP, WILL CONTINUE TO MONITOR
[2016-10-01 06:54] VITALS: BP 139/61
--- NOTE | 2016-10-01 07:05 | Progress Note ---
Subjective General Note Date: October 01, 2016 Admission Date: September 30, 2016 Hospital Day: 2 PCP: Feliz Patrick MD Status: Observation, ACU Advanced Directive: FULL CODE Room: 304 Admission History: The patient is a 61-year-old white female with a significant past mental history of depression, peripheral neuropathy, who presented to [facility] emergency department on the day of admission secondary to complaints of cough fever and chills of one week duration. [facility] ER evaluation was consistent with right-sided pneumonia/UTI. Secondary to the above, the patient was admitted by Wali Kaminski M.D. for further evaluation and treatment. For other history present illness, past medical history, family history, social history, review of systems, and admission physical examination please see the patient's history and physical examination and ER visit note in the patient's medical record. Subjective: The patient states she is doing better today. Persistent [id number]. Weakness improved. Feels ready for discharge Patient requests: None Medications and Allergies Medications Current Medications Sig/Jessica Start time Last Medication Dose Route Stop Time Status Admin Fluoxetine HCl 20 MG DAILY 10/01 899 AC PO Levofloxacin/Dextrose 150 ML DAILY 10/01 0900 AC IV Gabapentin 300 MG TID 09/30 2200 AC 10/01 PO 0627 Bupropion HCl 100 MG BID 09/30 2100 AC 09/30 PO 2054 Acetaminophen 650 MG Q6H PRN 09/30 1430 AC PO Hydromorphone HCl See Dose Q3H PRN 09/30 1430 AC Insts (1) IV Ketorolac 30 MG Q6H PRN 09/30 1430 AC 10/01 Tromethamine IV 10/01 2030 0410 Ondansetron HCl 4 MG Q6H PRN 09/30 1430 AC 09/30 IV 2055 Sodium Chloride 1,000 ML ASDIRECTED 09/30 1430 AC 10/01 IV 0216 Zolpidem Tartrate 5 MG QHS PRN 09/30 1430 AC PO Enoxaparin Sodium 40 MG DAILY 09/30 1427 AC 09/30 SC 1643 Dose Instructions: (1)Hydromorphone HCl: 0.5 - 1 MG Allergies Coded Allergies: Penicillins (Severe, HIVES 09/23/15) Physical Exam Vital Signs / I&Os Vital Signs Date Time Temp Pulse Resp B/P Pulse O2 O2 Flow FiO2 Ox Delivery Rate 10/01 0654 98.8 89 20 139/61 93 Room Air 10/01 0228 Room Air 10/01 0217 100.0 94 18 146/56 93 Room Air 09/30 2210 100.0 89 18 138/47 94 Room Air 06 1842 100.0 91 18 125/44 97 Room Air 09/30 1533 100.9 80 18 157/55 100 Room Air I&O 10/01 0000 /02 1600 09/30 0800 Intake Total 1270 0 Output Total 550 0 Balance 720 0 General Appearance Alert, Oriented X3, Cooperative, No acute distress Lungs Scattered rhonchi. Cardiovascular Regular rate and rhythm, Normal S1 and S2 Abdomen Normal bowel sounds, Soft, No tenderness Neurological Cranial nerves intact, No lateralizing signs Psych/Mental Status Mental status normal, Mood normal LAB Results Laboratory Tests 10/01 10/01 10/01 09/30 09/30 0413 0413 0413 1346 1258 Chemistry Lactic Acid (0.4 - 2.0 mmol/L) 0.7 Iron (35 - 150 ug/dL) 9 TIBC (260 - 445 ug/dL) 234 Iron Saturation (15 - 50 %) 4 Vitamin B12 (211 - 946 pg/mL) 875 Folate (>3.0 ng/mL) 57.1 Procalcitonin (0 - 0.5 ng/mL) Pending <0.5 Hematology WBC (4.5 - 11.5 K/uL) 6.1 RBC (4.00 - 5.20 M/uL) 3.31 Hgb (12.0 - 16.0 gm/dL) 10.2 Hct (36.0 - 46.0 %) 30.1 MCV (80 - 100 fL) 91 MCH (26 - 34 pg) 31 RDW (11.6 - 14.8 %) 14.0 Neut % (Auto) (50 - 75 %) Pending Lymph % (Auto) (25 - 40 %) Pending [place] % (Auto) (3 - 14 %) Pending Band Neutrophils % (0 - 8 %) Pending Plt Count, EDTA (150 - 400 K/uL) 305 PUBS MCHC (31 - 37 g/dL) 34 09/30 09/30 1258 1150 Chemistry Plasma Sodium (136 - 145 mmol/L) 134 Plasma Potassium (3.5 - 5.1 mmol/L) 4.0 Plasma Chloride (98 - 107 mmol/L) 97 CO2 (Enzymatic) (21 - 32 mmol/L) 22 BUN (7 - 18 mg/dL) 17 Creatinine (0.6 - 1.3 mg/dL) 0.9 Est GFR ( Amer) (mL/min) >60 Est GFR (Non-Af Amer) (mL/min) >60 Glucose (70 - 110 mg/dL) 106 Plasma Calcium (8.5 - 10.1 mg/dL) 8.8 Total Bilirubin (0.0 - 1.0 mg/dL) 0.2 AST (15 - 37 U/L) 36 ALT (12 - 78 U/L) 37 Alkaline Phosphatase (46 - 116 U/L) 76 Total Protein (6.4 - 8.2 g/dL) 7.2 Albumin (3.3 - 5.0 g/dL) 3.1 Hematology WBC (4.5 - 11.5 K/uL) 6.9 RBC (4.00 - 5.20 M/uL) 3.52 Hgb (12.0 - 16.0 gm/dL) 10.8 Hct (36.0 - 46.0 %) 32.2 MCV (80 - 100 fL) 92 MCH (26 - 34 pg) 31 RDW (11.6 - 14.8 %) 14.0 Neut % (Auto) (50 - 75 %) 78.1 Lymph % (Auto) (25 - 40 %) 9.2 [place]erry % (Auto) (3 - 14 %) 11.6 Eos % (Auto) (0 - 4 %) 0.7 Baso % (Auto) (0 - 2 %) 0.4 Plt Count, EDTA (150 - 400 K/uL) 306 PUBS MCHC (31 - 37 g/dL) 33 Urines Urine Color YELLOW Urine Appearance CLEAR Urine pH (5.0 - 8.0) 6.0 Ur Specific [place] (1.010 - 1.030) 1.010 Urine Protein (NEGATIVE) TRACE Urine Ketones (NEGATIVE) NEGATIVE Urine Blood (NEGATIVE) NEGATIVE Urine Nitrite (NEGATIVE) NEGATIVE Urine Bilirubin (NEGATIVE) NEGATIVE Urine Urobilinogen (0.2 - 1.0 EU/dL) 0.2 Ur Leukocyte Esterase (NEGATIVE) NEGATIVE Urine RBC (0 - 1 rbc/hpf) NONE SEEN Urine WBC (0 - 1 wbc/hpf) 1-3 Ur Epithelial Cells (0 - 5 EPI/hpf) 0-1 Urine Bacteria (NONE SEEN) MODERATE (2+ TO 3+) Urine Glucose (NEGATIVE) NEGATIVE Urine Comment CULTURE INDICATED Microbiology Date/Time Procedure - Status Source Growth 09/30 1555 MRSA Screen - RECD NASAL 09/30 1346 Blood Culture - RECD BLOOD 09/30 1150 Urine Culture - RECD URINE CC Assessment and Plan Problem List 1. Right upper lobe pneumonia Plan -Status stable -WBC, Procalcitonin within normal limits 2 -Mild temperature elevation -Discharge on Levaquin 750 mg by mouth daily -Outpatient follow up with PCP 2. UTI (urinary tract infection) Status Acute Onset Date Unknown Plan -UA suggestive of UTI -Urine C&S pending -Continue Levaquin 3. Pleurisy with effusion Status Acute Onset Date Unknown Plan -Stable -Percocet/ibuprofen when necessary for pain 4. Peripheral neuropathy Plan -Stable -Continue Neurontin 5. Depression Status Chronic Onset Date Unknown Plan -Stable -Continue Prozac/Wellbutrin 6. Nicotine dependence Status Chronic Onset Date Unknown Plan -Smoking cessation education -NicoDerm patch when necessary 7. Iron deficiency anemia Status Acute Onset Date Unknown Plan -Patient with findings of mild anemia. -H&H 10.2/30.1 -Iron studies consistent with iron deficiency anemia. Iron percent saturation 4 %. -B12 and foot levels within normal limits -Ferrous sulfate 325 mg by mouth twice a day -We'll recommend colonoscopy at discharge if not recently performed -Stool Hemoccult Current status: Good, improved Anticipated discharge date: Today Anticipated discharge placement: Home Patient care time: Time spent in chart review, patient interview, physical exam, CPOE, and care documentation: Greater than 30 minutes Visit to patient today: 1 Complexity of care: Moderate For other recommendations regarding discharge diet, activity, followup, and discharge medications please see the patient's discharge instructions. Greater than 30 min. was spent in the patient's discharge preparation including discharge interview and physical examination, progress note, discharge instructions, and discharge summary E&M Codes Discharge: Observation - All/[id number]
[2016-10-01 10:16] VITALS: BP 117/46
--- NOTE | 2016-10-01 11:44 | ED MAR SUMMARY ---
..... Medication Administration Record [facility] [address] [place] [address] Patient: BEATRICE GUTIERREZ Visit ID: [id number] 61y, F Weight: 56.6 kg Height/Length: 66 in BMI: 20.1 ALLERGIES: Penicillin Start 12:35 09/30/2016 Magan Walls R.N., Stop 13:22 09/30/2016 Ha Chandler R.N. Medication Administered: IV NS (SALINE), Dose: IV Fluids, Bolus: 1000 mL over 1 hour(s), Dispensed: 1000 mL bag, Site: #1 left forearm. Medication Ordered: IV NS : initial bolus 1000 mL (1000 mL/hr), then none - for X1 (NOW). Given 12:35 09/30/2016 Magan Walls R.N. Medication Administered: TORADOL [IVP], Dose: 30 mg IVP over 1 minute(s), Site: #1 left forearm. Medication Ordered: Toradol IV 30 mg (NOW). Start 13:25 09/30/2016 Ha Chandler R.N., Stop 15:20 09/30/2016 Ha Chandler R.N. Medication Administered: LEVAQUIN [IVPB] (LEVOFLOXACIN), Dose: 750 mg IVPB over 1 hour(s), Rate: 100 mL/hr, Dispensed: 100 mL bag, Site: #1 left forearm. Medication Ordered: Levaquin IV 750 mg/150 mL (NOW).
--- NOTE | 2016-10-01 11:44 | ED MED RECONCILIATION SUMMARY ---
Patient: BEATRICE GUTIERREZ Medication Reconciliation Report [facility] VisitID: [id number] [address] [place] [address] 61y, F Registration Date/Time: 09/30/2016 Weight: 56.6 kg Height/Length: 66 in. BMI: 20.1 ALLERGIES: Penicillin The patient's Home Medications are listed below: THE FOLLOWING MEDICATIONS NEED TO BE RECONCILED: Gabapentin Oral PROzac Oral Wellbutrin Oral The source(s) of the original Home Medication information: Not obtained. The following Medications were given to the patient in the Emergency Department: IV NS IV Fluids bolus 1000 mL over 1 hour(s), administered: 09/30/2016 12:35:00 PM Toradol [IVP] IVP 30 mg, administered: 09/30/2016 12:35:00 PM Levaquin [IVPB] IVPB bolus 0, then 750 mg 100 mL/hr, administered: 09/30/2016 1:25:00 PM The following Medications were prescribed to the patient: None.
--- NOTE | 2016-10-01 11:44 | ED MED RECONCILIATION SUMMARY ---
Patient: BEATRICE GUTIERREZ Medication Reconciliation Report [facility] VisitID: [id number] [address] [place] [address] 61y, F Registration Date/Time: 09/30/2016 Weight: 56.6 kg Height/Length: 66 in. BMI: 20.1 ALLERGIES: Penicillin The patient's Home Medications are listed below: THE FOLLOWING MEDICATIONS NEED TO BE RECONCILED: Gabapentin Oral PROzac Oral Wellbutrin Oral The source(s) of the original Home Medication information: Not obtained. The following Medications were given to the patient in the Emergency Department: IV NS IV Fluids bolus 1000 mL over 1 hour(s), administered: 09/30/2016 12:35:00 PM Toradol [IVP] IVP 30 mg, administered: 09/30/2016 12:35:00 PM Levaquin [IVPB] IVPB bolus 0, then 750 mg 100 mL/hr, administered: 09/30/2016 1:25:00 PM The following Medications were prescribed to the patient: None.
--- NOTE | 2016-10-01 11:44 | ED MAR SUMMARY ---
..... Medication Administration Record [facility] [address] [place] [address] Patient: BEATRICE GUTIERREZ Visit ID: [id number] 61y, F Weight: 56.6 kg Height/Length: 66 in BMI: 20.1 ALLERGIES: Penicillin Start 12:35 09/30/2016 Magan Walls R.N., Stop 13:22 09/30/2016 Ha Chandler R.N. Medication Administered: IV NS (SALINE), Dose: IV Fluids, Bolus: 1000 mL over 1 hour(s), Dispensed: 1000 mL bag, Site: #1 left forearm. Medication Ordered: IV NS : initial bolus 1000 mL (1000 mL/hr), then none - for X1 (NOW). Given 12:35 09/30/2016 Magan Walls R.N. Medication Administered: TORADOL [IVP], Dose: 30 mg IVP over 1 minute(s), Site: #1 left forearm. Medication Ordered: Toradol IV 30 mg (NOW). Start 13:25 09/30/2016 Ha Chandler R.N., Stop 15:20 09/30/2016 Ha Chandler R.N. Medication Administered: LEVAQUIN [IVPB] (LEVOFLOXACIN), Dose: 750 mg IVPB over 1 hour(s), Rate: 100 mL/hr, Dispensed: 100 mL bag, Site: #1 left forearm. Medication Ordered: Levaquin IV 750 mg/150 mL (NOW).
--- NOTE | 2016-10-01 11:54 | NUR ---
PT IS STABLE THIS MORNING, AMBULATING, A/O, ACTIVE WITH FAMILY. SHE HAS DENIED ANY DYSPNEA OR SHORTNESS OF BREATH. CHIEF COMPLAINT IS SOME PAIN IN HER RIBS UPON INSPIRATION. PT IS USING IS, COMPLIANT WITH POC, ATTEMPTING TO OBTAIN HEMOCCULT SAMPLE, PER CARE ROUNDS WITH MD, PT MAY DC THIS AFTERNOON.
--- NOTE | 2016-10-01 12:07 | NUR ---
PT HAS BEEN RESTING IN ROOM ALL MORNING, HAS MOMENTS OF MENTAL CLARITY BUT PT IS OTHERWISE STILL CONFUSED AT TIMES, SAYING HER 'S NAME AND ASKING HIM QUESTIONS. PT REORIENTS EASILY. AWARE OF PT'S STATUS, NO PARACENTESIS FOR NOW. WE WILL CONTINUE TO DIURESE PT, ABNER ALEJANDRO.
[2016-10-01] MEDS ORDERED: ALEVE220 MG PO (12:54)
[2016-10-01] MEDS ORDERED: FERROUS SULFAT325 M1 PO (12:54)
[2016-10-01] MEDS ORDERED: LEVAQUIN750 MG PO (12:55)
[2016-10-01] MEDS ORDERED: GABAPENTIN300 MG PO (12:57)
--- NOTE | 2016-10-01 12:59 | Provider's Discharge Care Plan ---
Problem, Goal, Plan Problem List 1. Right upper lobe pneumonia Goals: Improve disease control, Prevent disease progress Instructions: Follow up as directed, Take meds as directed 2. Iron deficiency anemia Goals: Improve disease control, Prevent disease progress Instructions: Follow up as directed, Take meds as directed, follow up with your family physician for repeat blood count in 2-4 weeks. You should undergo colonoscopy if one has not been performed recently. Please discuss this with your primary care provider. 3. Nicotine dependence Goals: Improve disease control, Prevent disease progress Instructions: Follow up as directed, Take meds as directed, Stop smoking 4. UTI (urinary tract infection) Goals: Improve disease control, Prevent disease progress Instructions: Follow up as directed, Take meds as directed
--- NOTE | 2016-10-01 13:33 | Discharge Summary ---
Discharge Summary Report Admit Date 09/30/16 Discharge Date 10/01/16 Admission Diagnosis 1. Pneumonia 2. UTI 3. Anemia 4. Peripheral neuropathy 5. Depression 6. Nicotine dependence-smoking Discharge Diagnosis 1. Pneumonia 2. UTI 3. Iron deficiency anemia 4. Peripheral neuropathy 5. Depression 6. Nicotine dependence-smoking Brief History The patient is a 61-year-old white female with a significant past mental history of depression, peripheral neuropathy, who presented to [facility] emergency department on the day of admission secondary to complaints of cough fever and chills of one week duration. [facility] ER evaluation was consistent with right-sided pneumonia/UTI. Secondary to the above, the patient was admitted by Wali Kaminski M.D. for further evaluation and treatment. For other history present illness, past medical history, family history, social history, review of systems, and admission physical examination please see the patient's history and physical examination and ER visit note in the patient's medical record. Hospital Course The following problems and their management were noted during the patient's hospitalization: 1. Pneumonia The patient presented with findings of right-sided pneumonia. WBC/Procalcitonin within normal limits. These were rechecked prior to discharge. The patient experienced no fever to her hospital stay. She'll be discharged on Levaquin 750 mg by mouth daily to complete a full course of antimicrobial therapy. Outpatient follow up with PCP next week. 2. UTI The patient had findings of UTI on urinalysis. Final urine C&S pending. Patient treated with Levaquin as noted above. 3. Iron deficiency anemia The patient had findings of mild anemia. Iron studies were consistent iron deficiency anemia. She was placed on ferrous sulfate 325 mg by mouth twice a day at time of discharge. She will follow-up with her PCP next week. 4. Peripheral neuropathy Stable. Patient continued on Neurontin. Outpatient follow-up with PCP 5. Depression Stable. Patient continued on Wellbutrin and Prozac. Outpatient follow up with PCP 6. Nicotine dependence-smoking Patient underwent smoking cessation education. Follow up with PCP. Recommended NicoDerm patch when necessary Lab/Imaging Laboratory Tests 10/01 10/01 10/01 0413 0413 0413 Chemistry Iron (35 - 150 ug/dL) 9 TIBC (260 - 445 ug/dL) 234 Iron Saturation (15 - 50 %) 4 Vitamin B12 (211 - 946 pg/mL) 875 Folate (>3.0 ng/mL) 57.1 Procalcitonin (0 - 0.5 ng/mL) <0.5 Hematology WBC (4.5 - 11.5 K/uL) 6.1 RBC (4.00 - 5.20 M/uL) 3.31 Hgb (12.0 - 16.0 gm/dL) 10.2 Hct (36.0 - 46.0 %) 30.1 MCV (80 - 100 fL) 91 MCH (26 - 34 pg) 31 RDW (11.6 - 14.8 %) 14.0 Neut % (Auto) (50 - 75 %) 63 Lymph % (Auto) (25 - 40 %) 33 [place] % (Auto) (3 - 14 %) 4 Eos % (Auto) (0 - 4 %) 0 Baso % (Auto) (0 - 2 %) 0 Band Neutrophils % (0 - 8 %) 0 Metamyelocytes % (0 - 1 %) 0 Myelocytes (0 - 1 %) 0 Other Cell Type 0 Plt Count, EDTA (150 - 400 K/uL) 305 Poikilocytosis (manual 1+ Anisocytosis (manual) 1+ PUBS MCHC (31 - 37 g/dL) 34 Microbiology Date/Time Procedure - Status Source Growth 09/30 1555 MRSA Screen - RECD NASAL Discharge Instructions/Meds For other recommendations regarding discharge diet, activity, followup, and discharge medications please see the patient's discharge instructions. Discharge condition: Good, improved Greater than 30 min. was spent in the patient's discharge preparation including discharge interview and physical examination, progress note, discharge instructions, and discharge summary The patient was interviewed and examined on the day of discharge. E&M Codes Discharge: Observation - All/[id number]
--- NOTE | 2016-10-01 15:56 | NUR ---
DC NOTE: PT DC'D IN STABLE CONDITION, AMBULATING AROUND UNIT, MAINTAINNG 02 SATS, PAIN IS CONTROLLED. DISCUSSED DC PLAN OF CARE, PT'S SON AT BEDSIDE, PT VERBALIZED UNDERSTANDING OF F/U APPT THAT SHE IS TO CALL AND MAKE WITH DR MALDONADO' OFFICE, MEDICATION REGIMEN, AND SYMPTOMS TO REPORT. PT WAS TAKEN OUTTO HER DC VEHICLE VIA WHEELCHAIR, ACCOMPANIED BY FACILITY TECH, SON AMBULATING ALONGSIDE.
== END 2016-10-01 15:45 | disposition home or self-care (01) ==
LOC: ED SRH 11:19 → TRANS SRH 13:45 → CC SRH 15:39
PROVIDERS: ADMIT Student in an Organized Health Care Education/Training Program
DX: J18.9 Pneumonia, unspecified organism (principal); J90 Pleural effusion, not elsewhere classified; N39.0 Urinary tract infection, site not specified; D50.9 Iron deficiency anemia, unspecified; G62.9 Polyneuropathy, unspecified; F32.9 Major depressive disorder, single episode, unspecified; F17.210 Nicotine dependence, cigarettes, uncomplicated
CPT/HCPCS: 29244; 29247; 29251; 29263; 90004; 90065; 90074; 90100; 90469; 91295; 91504; 91505; 92031; 92132; 92668; 92670; 93004; 95059; 95061